=== PATIENT | male | born 1970 | race African-American/Black ===

== ENCOUNTER 2021-07-10 03:06 | Emergency (ER) | payer OTHER ==
[2021-07-10] MEDS ORDERED: ONDANSETRON 4 MG/2 ML INJ IV ONE (03:14)
[2021-07-10] MEDS ORDERED: SODIUM CHLORIDE 0.9% 1000 ML 1,000 ML IV ONE (03:17)
[2021-07-10 03:35] LABS: Basophils % (Auto) 0.4 % (0.0-1.8); Eosinophils # (Auto) 0.1 K/mm3 (0.0-0.4); Eosinophils % (Auto) 0.8 % (0.0-4.3); Hematocrit 46.4 % (35.5-45.6); Hemoglobin 15.4 gm/dl (11.8-15.2); Lymphocytes # (Auto) 2.6 K/mm3 (1.2-5.4); Lymphocytes % (Auto) 29.7 % (13.4-35.0); Mean Corpuscular HGB Conc 33 % (32-34); Mean Corpuscular Volume 94 fl (84-94); Monocytes # (Auto) 0.4 K/mm3 (0.0-0.8); Monocytes % (Auto) 4.6 % (0.0-7.3); Platelet Count 265 K/mm3 (140-440); Red Blood Count 4.93 M/mm3 (3.65-5.03); Red Cell Distribution Width 12.7 % (13.2-15.2)
--- NOTE | 2021-07-10 03:37 | Emergency Department Report ---
ED Dizziness HPI - General Chief Complaint: Nausea/Vomiting/Diarrhea Stated Complaint: DIZZINESS AND VOMITING Time Seen by Provider: 07/10/21 03:24 Source: patient Mode of arrival: Ambulatory Limitations: No Limitations - History of Present Illness Initial Comments: cc: room spinning, vomiting HPI: This is a healthy 50 yo male without significant past medical history who presents with the sudden onset of room spinning and vomiting at midnight. He w as unable to sleep due to the severe room spinning and vomiting. Denies headache or blurry vision. Denies paralysis. Patient speaks [place] Island[place]. Family member provided language interpretation. MD Complaint: dizziness -: Sudden, hour(s) (Midnight) Timing: sudden onset Description: "room spinning" History of Same: No History of Trauma: No Severity: severe Worsens With: movement Associated Symptoms: other (Severe vomiting) - Related Data Previous Rx's Medication Instructions Recorded Last Taken Type Promethazine [Phenergan] 25 mg PO Q6HR PRN #10 tab 07/10/21 Unknown Rx Allergies Allergy/AdvReac Type Severity Reaction Status Date / Time No Known Allergies Allergy Verified 07/10/21 03:37 ED Review of Systems ROS: Stated complaint: DIZZINESS AND VOMITING Other details as noted in HPI Comment: All other systems reviewed and negative Constitutional: denies: chills, fever, malaise Respiratory: denies: cough, shortness of breath Cardiovascular: denies: chest pain Gastrointestinal: nausea, vomiting. denies: abdominal pain Neurological: vertigo. denies: headache, weakness, abnormal gait ED Past Medical Hx - Past Medical History Previous Medical History?: No - Surgical History Past Surgical History?: No - Social History Smoking Status: Never Smoker Substance Use Type: None - Medications Home Medications: Home Medications Medication Instructions Recorded Confirmed Last Taken Type Promethazine [Phenergan] 25 mg PO Q6HR PRN #10 tab 07/10/21 Unknown Rx ED Physical Exam - General Limitations: Language Barrier General appearance: alert, in no apparent distress, other (keeps eyes closed, constantly vomiting) - Head Head exam: Present: atraumatic, normocephalic - Eye Eye exam: Present: normal appearance - ENT ENT exam: Present: mucous membranes moist - Neck Neck exam: Present: normal inspection, full ROM - Respiratory Respiratory exam: Present: normal lung sounds bilaterally. Absent: respiratory distress, wheezes, rales, rhonchi - Cardiovascular Cardiovascular Exam: Present: regular rate, normal rhythm, normal heart sounds. Absent: systolic murmur, diastolic murmur, rubs, gallop - GI/Abdominal GI/Abdominal exam: Present: soft, normal bowel sounds. Absent: distended, tenderness, guarding, rebound - Rectal Rectal exam: Present: deferred - Extremities Exam Extremities exam: Present: normal inspection - Back Exam Back exam: Present: normal inspection - Neurological Exam Neurological exam: Present: alert, oriented X3, CN II-XII intact, normal gait - Expanded Neurological Exam Expanded Patient oriented to: Present: person, place, time Speech: Present: fluid speech Sensory exam: Upper Extremity Light Touch: Normal Motor strength exam: RUE: 5, LUE: 5, RLE: 5, LLE: 5 Best Eye Response (Jeffrey): (4) open spontaneously Best Motor Response ([place]): (6) obeys commands Best Verbal Response (Jeffrey): (5) oriented [place] Total: 15 - Psychiatric Psychiatric exam: Present: normal affect, normal mood - Skin Skin exam: Present: warm, dry, intact, normal color. Absent: rash ED Course Vital Signs 07/10/21 07/10/21 07/10/21 03:10 04:09 04:10 Temperature 98 F Pulse Rate 72 63 64 Respiratory 18 13 13 Rate Blood Pressure Blood Pressure 111/77 [Right] O2 Sat by Pulse 96 Oximetry 07/10/21 04:12 Temperature Pulse Rate 65 Respiratory 21 Rate Blood Pressure 103/56 Blood Pressure [Right] O2 Sat by Pulse 96 Oximetry ED Medical Decision Making - Lab Data Result diagrams: 07/10/21 Unknown 07/10/21 Unknown - EKG Data -: EKG Interpreted by Me EKG shows normal: sinus rhythm, axis, intervals, QRS complexes, ST-T waves Rate: normal - EKG Data Interpretation: normal EKG 07/10/21 04:26 EKG obtained 422 EKG interpreted by me Normal sinus rhythm rate 65 bpm normal axis normal intervals no ST elevation no ST-T sign ischemia - Radiology Data Radiology results: report reviewed interpreted by me: Patient Name: LUCY BUAMAN Gender: Male Date of : 1970 Home Phone: Referring Provider: SARIAH ALMANZA Organization: [facility] Accession Number: [id number] Requested Date: July 10, 2021 04:05 Report Status: Final Requested Procedure: 1 Procedure Description: CT head/brain wo con Modality: CT Findings Reporting MD: Tray Story Dictation Time: July 10, 2021 03:21 Online Activist: Not available Manager Domestic Date: CT head without contrast INDICATION : Vertigo with vomiting. TECHNIQUE: Axial imaging performed from the skull apex through the skull base without the use of contrast. All CT scans at this location are performed using CT dose reduction for ALARA by means of automated exposure control. COMPARISON: None FINDINGS: Parenchyma: No mass, stroke or hemorrhage. Ventricles: Ventricles are normal in size and appear symmetric. Soft tissues: Soft tissues including the orbits appear normal. Bones: No acute osseous abnormality. Sinuses: Sinuses and mastoid air cells are clear. IMPRESSION: No acute abnormality. Signer Name: Tray Story MD Signed: 07/10/2021 3:21 AM Workstation Name: [employer] Patient Name: LUCY BAUMAN Gender: Male Date of : 1970 Home Phone: Referring Provider: CARLOS ANDERSON Organization: [facility] Accession Number: [id number] Requested Date: July 10, 2021 03:17 Report Status: Final Requested Procedure: 1 Procedure Description: XR chest 1V ap Modality: XR Findings Reporting MD: Tray Story Dictation Time: July 10, 2021 02:46 Online Activist: Not available Manager Domestic Date: CHEST 1 VIEW 07/10/2021 3:43 AM INDICATION / CLINICAL INFORMATION: chest pain. COMPARISON: None available. FINDINGS: SUPPORT DEVICES: None. HEART / MEDIASTINUM: No significant abnormality. LUNGS / PLEURA: No significant pulmonary or pleural abnormality. No pneumothorax. ADDITIONAL FINDINGS: No significant additional findings. IMPRESSION: No acute abnormality. Signer Name: Tray Stroy MD Signed: 07/10/2021 2:46 AM Workstation Name: [email or web address] - Medical Decision Making Benign positional vertigo: Patient was treated with IV Zofran for antiemetic effect. I performed a modified Serafin maneuver. Patient symptoms resolved. No concomitant symptoms such as central nystagmus, ataxia or paralysis to indicate CVA or central cause of vertigo. He also received p.o. meclizine. Also received IV Zofran. EKG x-ray CBC chemistry CT head all within normal limits. No evidence of cardiovascular disease Prescribed promethazine. Referred to outpatient physician Critical care attestation.: If time is entered above; I have spent that time in minutes in the direct care of this critically ill patient, excluding procedure time. ED Disposition Clinical Impression: Benign positional vertigo Disposition: HOME / SELF CARE / HOMELESS Is pt being admited?: No Does the pt Need Aspirin: No Condition: Stable Instructions: How to Perform the Serafin Maneuver, Benign Positional Vertigo, Vertigo, Sjod-uv-Vvod Prescriptions: Promethazine [Phenergan] 25 mg PO Q6HR PRN #10 tab PRN Reason: Nausea Referrals: THONG AMADOR MD [Staff Physician] - 3-5 Days
[2021-07-10] MEDS ORDERED: MECLIZINE 25 MG TAB PO ONE (03:42)
[2021-07-10 03:44] LABS: INR 0.87 (0.87-1.13)
[2021-07-10 03:45] LABS: Partial Thromboplastin Time 27.5 Sec. (24.2-36.6)
--- NOTE | 2021-07-10 03:50 | XRay Report ---
CHEST 1 VIEW 07/10/2021 3:43 AM INDICATION / CLINICAL INFORMATION: chest pain. COMPARISON: None available. FINDINGS: SUPPORT DEVICES: None. HEART / MEDIASTINUM: No significant abnormality. LUNGS / PLEURA: No significant pulmonary or pleural abnormality. No pneumothorax. ADDITIONAL FINDINGS: No significant additional findings. IMPRESSION: No acute abnormality. Signer Name: Tray Story MD Signed: 07/10/2021 3:46 AM Workstation Name: [id number]
[2021-07-10 03:59] LABS: Alanine Aminotransferase 25 units/L (7-56); Albumin 4.8 g/dL (3.9-5); BUN/Creatinine Ratio 18; Blood Urea Nitrogen 16 mg/dL (9-20); Calcium 9.3 mg/dL (8.4-10.2); Hemolysis Index 6
--- NOTE | 2021-07-10 04:25 | Cat Scan Report ---
CT head without contrast INDICATION : Vertigo with vomiting. TECHNIQUE: Axial imaging performed from the skull apex through the skull base without the use of con trast. All CT scans at this location are performed using CT dose reduction for ALARA by means of aut omated exposure control. COMPARISON: None FINDINGS: Parenchyma: No mass, stroke or hemorrhage. Ventricles: Ventricles are normal in size and appear symmetric. Soft tissues: Soft tissues including the orbits appear normal. Bones: No acute osseous abnormality. Sinuses: Sinuses and mastoid air cells are clear. IMPRESSION: No acute abnormality. Signer Name: Tray Story MD Signed: 07/10/2021 4:21 AM Workstation Name: [id number]
[2021-07-10 05:18] VITALS: BP 109/56
--- NOTE | 2021-07-11 10:39 | Electrocardiograph Report ---
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
== END 2021-07-10 05:39 | disposition home or self-care (01) ==
LOC: ED 03:06
DX: H81.13 Benign paroxysmal vertigo, bilateral (principal)
CPT/HCPCS: 36415; 70450; 71045; 80053; 83690; 84484; 85025; 85610; 85730; 93005; 96361; 96374; 99284; J2405; J7030; Q0162